=== PATIENT | female | born 2000 | race Caucasian/White ===

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

== ENCOUNTER 2019-06-20 07:37 | Emergency (ER) | payer BC ==
[~2019-06-20] VITALS: Ht 172.7 cm; Wt 70.3 kg
[~2019-06-20 07:37] MED LIST changes: +ONDANSETRON HCL4 M2 PO; +PEPCID20 MG PO
[2019-06-20 07:58] LABS: URINE BILIRUBIN NEGATIVE (Negative); URINE BLOOD 2+ (Negative); URINE CLARITY CLEAR; URINE COLOR YELLOW; URINE GLUCOSE-RANDOM NEGATIVE (Negative); URINE KETONES NEGATIVE (Negative); URINE PROTEIN TRACE (Negative); URINE UROBILINOGEN 0.2 E.U./dl (0.2-1.0)
[2019-06-20 08:00] LABS: URINE LEUKOCYTES-REFLEX 2+ (Negative); URINE NITRITE-REFLEX POSITIVE (Negative)
[2019-06-20 08:06] LABS: SQUAMOUS 4-10 Moderate /LPF (0-3); URINE WBC-REFLEX >25 Many /HPF (0-5)
[2019-06-20 08:07] LABS: BACTERIA-REFLEX >30 Many /HPF (None Seen); CASTS None Seen /LPF (None Seen); CRYSTALS None Seen /LPF (None Seen); MUCUS 0-3 Light strn/LPF (None Seen); URINE RBC 3-10 Few /HPF (0-2)
[2019-06-20] MEDS ORDERED: TYLENOL WITH CO1 TA1 PO (08:07)
[2019-06-20] MEDS ORDERED: AUGMENTIN 500-1 EACH PO (08:07)
[2019-06-20] MEDS ORDERED: ZOFRAN ODT4 MG PO (08:07)
[2019-06-20 08:12] VITALS: BP 115/76
== END 2019-06-20 08:12 | disposition home or self-care (01) ==
LOC: M.ERS 07:37
PROVIDERS: Personal Emergency Response Attendant
DX: N39.0 Urinary tract infection, site not specified (principal); F17.210 Nicotine dependence, cigarettes, uncomplicated; Z90.49 Acquired absence of other specified parts of digestive tract